=== PATIENT | male | born 1985 | race African-American/Black ===

== ENCOUNTER 2023-02-10 21:41 | Emergency (ER) | payer MEDICAID, OTHER ==
[~2023-02-10] VITALS: Ht 177.8 cm; Wt 90.9 kg
[2023-02-10] MEDS ORDERED: MAGNESIUM/ALUMINUM HYDROXIDE/SIMETHICONE 30ML UDC PO ONE (23:45)
[2023-02-10] MEDS ORDERED: KETOROLAC 60MG/2ML VIAL IM ONE (23:45)
[2023-02-10] MEDS ORDERED: VISCOUS LIDOCAINE 2% 15 ML UDC MM ONE (23:45)
[2023-02-10] MEDS ORDERED: ONDANSETRON HCL 4MG TABLET PO ONE (23:45)
[2023-02-11 00:13] VITALS: BP 101/56
[2023-02-11] MEDS ORDERED: IBUP-2029 MT (00:13)
[2023-02-11] MEDS ORDERED: ONDA4TAB50 MT (00:13)
[2023-02-11] MEDS ORDERED: FAMO-287 MT (01:02)
== END 2023-02-11 01:34 | disposition home or self-care (01) ==
LOC: ER 21:41
DX: R25.2 Cramp and spasm (principal); R51.9 Headache, unspecified; R11.0 Nausea; J45.909 Unspecified asthma, uncomplicated
CPT/HCPCS: 96372; 99283; J1885; Q0162; Z7610